=== PATIENT | female | born 1935 | race Caucasian/White ===

== ENCOUNTER 2018-12-27 14:42 | Observation (INO) | payer MEDICARE ==
[2018-12-27 22:26] VITALS: BMI 23.5
[2018-12-28] MEDS ORDERED: Loratadine 10 MG TAB PO PRN (06:42)
[2018-12-28] MEDS ORDERED: hydrALAZINE 20 MG/ML VIAL SLOW IVP PRN (06:42)
[2018-12-28] MEDS ORDERED: Sodium Chloride 0.65% Nasal 44 ML BOT EA NARE PRN (06:42)
[2018-12-28] MEDS ORDERED: Zolpidem Tartrate 5 MG TAB PO PRN (06:42)
[2018-12-28] MEDS ORDERED: Senokot S 8.6-50 MG TAB PO PRN (06:42)
[2018-12-28] MEDS ORDERED: HYDROcodone/Acetaminophen 5/325 mg Tablet PO PRN (06:42)
[2018-12-28] MEDS ORDERED: Ondansetron ODT 4 MG TAB PO PRN (06:42)
[2018-12-28] MEDS ORDERED: Artificial Tears 18 DROP/0.9 ML EA EYE PRN (06:42)
[2018-12-28] MEDS ORDERED: Bisacodyl 10 MG SUPP PR PRN (06:42)
[2018-12-28] MEDS ORDERED: Calcium Carbonate 500 MG ChewTAB PO PRN (06:42)
[2018-12-28] MEDS ORDERED: Eucerin (Mineral Oil/Petrolatum,White) 30 gm Jar TOP PRN (06:42)
[2018-12-28] MEDS ORDERED: Acetaminophen 325 MG TAB PO PRN (06:42)
[2018-12-28] MEDS ORDERED: Cepastat Lozenges 1 LOZ PO PRN (06:42)
[2018-12-28] MEDS ORDERED: Diabetic Tussin 200 MG/10 ML UDCUP PO PRN (06:42)
[2018-12-28] MEDS ORDERED: Loperamide HCl 2 MG CAP PO PRN (06:42)
[2018-12-28] MEDS ORDERED: Ondansetron PF 4 MG/2 ML Vial IVP PRN (06:42)
[2018-12-28] MEDS: Magnesium Oxide 400 MG TAB PO SCH (08:45)
[2018-12-28] MEDS: Metamucil PACK PO SCH (08:45)
[2018-12-28] MEDS: Famotidine 20 MG TAB PO SCH ×3 (08:45→20:10)
[2018-12-28] MEDS ORDERED: Ketorolac Tromethamine 30 MG/ML VIAL IVP PRN (09:13)
--- NOTE | 2018-12-28 09:37 | HP ---
PRIMARY CARE PHYSICIAN: [facility] Call Admission. REASON FOR ADMISSION: Transferred from [facility] after mechanical fall. HISTORY OF PRESENT ILLNESS: An 83-year-old female, who lives at home with her daughter. The patient has previous history of stroke with mild residual weakness. The patient is mostly ambulating with help of equipment. Yesterday, she was in her bathroom and when she turned, she lost her balance and she fell down. Subsequently, she was having pain in her left hip. Because of left hip pain, the patient was having difficulty ambulation. Initially, the patient was refusing to go to the hospital, but subsequently, she decided to go to the hospital because she was having pain. She was evaluated at [facility] with x-ray and CT abdomen and pelvis, which did not show any fracture or dislocation. The patient was having deep aching pain in the groin on the left side, which was getting worse with weightbearing. As the patient was not able to function by herself at home, that is why, the patient was sent to our emergency room and she was admitted overnight in the hospital. This morning, when I saw the patient at that time, she was having pain free when she was resting, but her pain was getting worse with movement. Her intensity of pain is currently about 2/10. She denies any pain, chest pain, palpitation, shortness of breath. She denies any nausea, vomiting, and diarrhea. She denies any UTI symptoms. She denies any flu-like illness. REVIEW OF SYSTEMS: CONSTITUTIONAL: Negative for weight loss or gain, ability to conduct usual activities. SKIN: Negative for rash, itching. EYES: Negative for double vision, pain. ENT/MOUTH: Negative for nose bleeding, neck stiffness, pain, tenderness. CARDIOVASCULAR: Negative for palpitations, dyspnea on exertion, orthopnea. RESPIRATORY: Negative for shortness of breath, wheezing, cough, hemoptysis, fever or night sweats. GASTROINTESTINAL: Negative for poor appetite, abdominal pain, heartburn, nausea , vomiting, constipation, or diarrhea. GENITOURINARY: Negative for urgency, frequency, dysuria, nocturia. MUSCULOSKELETAL: Negative for pain, swelling. NEUROLOGIC/PSYCHIATRIC: Negative for anxiety, depression. ALLERGY/IMMUNOLOGIC: Negative for skin rash, bleeding tendency. Please see my HPI for pertinent positives and negatives. All other review of systems reviewed and negative, except as mentioned in HPI. PAST MEDICAL HISTORY: History of stroke several years ago. PAST PSYCHIATRIC HISTORY: Reviewed and negative. PAST SURGICAL HISTORY: Reviewed and negative. SOCIAL HISTORY: The patient is living at home with her daughter. No history of tobacco, alcohol, or illicit drug abuse. ALLERGIES: NO KNOWN DRUG ALLERGIES. CURRENT HOME MEDICATIONS: 1. Magnesium oxide 400 mg daily. 2. Trazodone 50 mg p.o. at bedtime. 3. Metamucil daily. EMERGENCY ROOM COURSE: The patient was given [place], morphine and Toradol at other emergency room. The patient had all laboratory investigation and radiological investigation in [facility]. FAMILY HISTORY: No history of CAD, CVA or cancer. PHYSICAL EXAMINATION: VITAL SIGNS: On arrival to our emergency room, blood pressure 139/80, pulse 80, respiratory rate 16, temperature 98.2, saturation 94% on room air. Weight 56.7 kg. GENERAL: The patient is currently alert, oriented. No obvious acute distress. HEENT: Head; normocephalic, atraumatic. Eyes; pupils round, reactive to light. Extraocular muscle intact. ENT; oropharynx within normal limits. Moist mucous membranes. No oral lesion. No pharyngeal erythema. No exudate. NECK: Supple. No JVD. No thyromegaly. No carotid bruit. No jugular venous distention. LUNGS: Clear to auscultation without any rhonchi or rales. CARDIAC: S1, S2 regular without any murmur. No gallop. No rub. ABDOMEN: Soft bowel sounds present. Nontender. Nondistended. No organomegaly. No mass. No suprapubic tenderness. BACK EXAMINATION: Unremarkable. No CVA tenderness. EXTREMITIES: Upper extremities, passive movement of all joints are normal. Lower extremity, no edema. Good distal pulsation. The patient does have pain in left hip with external rotation. There is no leg shortening. There is no tenderness in lateral aspect of the hip. Back is within normal limits. NEUROLOGIC: Nonfocal examination. She moves all 4 limbs, plantar bilateral flexor. SKIN: No skin rash. HEMATOLOGICAL SYSTEM: No lymphadenopathy. PSYCHIATRIC: Normal affect. SIGNIFICANT LABORATORY DATA: The patient had blood tests done at [facility] and reviewed. Her CBC, BMP, and LFT is completely normal. Her x -ray including a CT abdomen and pelvis and x-ray pelvis did not show any fracture or dislocation or any abdominal process. ASSESSMENT AND PLAN: IMPRESSION: 1. Left hip pain, etiology uncertain, suspecting osteoarthritis. Some very mild hairline fracture cannot be entirely excluded. We will consult orthopedic physician. We will control her pain with Toradol and [place] p.r.n. basis. Will full start PT/OT after orthopedic evaluation. The patient may need rehab placement. 2. History of cerebrovascular accident with mild residual weakness. The patient will need PT/OT. 3. Deep vein thrombosis prophylaxis, SCD boots. 4. Gastrointestinal prophylaxis, Pepcid 20 mg p.o. b.i.d. CODE STATUS: Spoke with the patient and the patient is DNR. The patient's daughter is surrogate decision maker. DISPOSITION PLAN: Based on clinical course, the patient by herself prefers to go to [facility] versus rehab upon discharge. We will consult returned case inspector and we will start PT/OT as well. Job ID: [id number] [email or web address]
--- NOTE | 2018-12-28 14:39 | CON ---
DATE OF CONSULTATION: 12/28/2018 HISTORY OF PRESENT ILLNESS: This is an 83-year-old female who presents with her son-in-law at the bedside. The patient has history of a stroke effecting left upper and left lower extremity, weakness, she has difficulty, uses a walker to get around. The patient fell and lost her balance yesterday. The patient is currently in the hospital. She states that she desires to , does not desire to have any further treatment. She was seen in the [facility] and had a femur x-ray and CT scan of her left hip. She was brought in, currently consulted by Medicine for hip pain. The patient is resting currently in bed. PAST MEDICAL HISTORY: Includes stroke. PAST SURGICAL HISTORY: Negative. ALLERGIES: NO KNOWN DRUG ALLERGIES. MEDICATIONS: 1. Magnesium. 2. Trazodone. 3. Metamucil. SOCIAL HISTORY: Living at home. Currently, the patient denies alcohol, tobacco, or drug use. PHYSICAL EXAMINATION: VITAL SIGNS: Currently, patient's vital signs are 97.4, 85, 18, 94% on room air, 142/83. GENERAL: Alert and oriented female, resting comfortably in bed. EXTREMITIES: Focused exam of her left lower extremity shows pain with internal and external rotation of her hip. She is able to gently flex her hip, flex and extend her knee, plantar flex and dorsiflex her feet, but she has some spasm and clonus with motion. The patient's sensation is grossly intact distally. She has brisk cap refill. She has no effusion. Stable knee. The patient's radiographs, which were listed on the wrong date, date as well as under the wrong name, Melissa Torres, 1935. CT scan of her pelvis as well as her hip show no obvious fracture of her left femur or femoral neck. There is what appears to be a little chronic degenerative changes in her trochanter, which could be an avulsion fracture. IMPRESSION: Suspected nondisplaced femoral neck fracture versus just left hip pain. ASSESSMENT AND PLAN: The patient does not desire any intervention at this time. She is refusing care. I discussed that further delineation of the fracture would be required using an MRI of her hip, but the patient does not desire surgery and therefore I would not recommend MRI at this time. The patient will be touchdown weightbearing to her left lower extremity. She will use a walker for mobility. She will likely require disposition to a intermediate care. She may consult Orthopedics again, if there is any further treatment plan requirement. I discussed with the family at the bedside with son-in-law and herself that if she displaced the fracture, she would then for sure need a surgery, but she again is declining all care. Job ID: [id number]
[2018-12-28] MEDS: traZODone HCl 50 MG TAB PO SCH (20:10)
[2018-12-28 20:15] LABS: #Basophils 0.1 thou/uL (0.0-0.2); #Eosinphils 0.1 thou/uL (0.0-0.7); #Lymphocytes 1.4 thou/uL (1.20-3.40); #Monocytes 0.7 thou/uL (0.11-0.59); %Basophils 0.7 % (0.0-1.0); %Eosinophils 0.7 % (0.0-10.0); %Lymphocytes 15.1 % (21.0-51.0); %Monocytes 7.2 % (0.0-10.0); %Neutrophils 76.3 % (42.0-75.0); Hemoglobin 14.2 g/dL (12.0-16.0); Mean Corpuscular HGB CONC 33.4 g/dL (32.0-36.0); Mean Corpuscular Hemoglobin 31.3 pg (27.0-31.0); Mean Corpuscular Volume 93.8 fL (78.0-98.0); Mean Platelet Volume 6.8 fL (7.4-10.4); Platelet Count 200 thou/uL (130-400); RBC Distribution Width 12.2 % (11.5-14.5); Red Blood Cell (RBC) Count 4.54 mill/uL (4.20-5.40); White Blood Cell (WBC) Count 9.2 thou/uL (4.8-10.8)
[2018-12-28 20:38] LABS: ALT (SGPT) 24 U/L (8-55); AST (SGOT) 19 U/L (5-34); Albumin 3.9 g/dL (3.4-4.8); Alkaline Phosphatase 82 U/L (40-150); Anion Gap 14 mmol/L (10-20); BUN (Urea Nitrogen) 14 mg/dL (9.8-20.1); Bilirubin, Total 0.7 mg/dL (0.2-1.2); Calc. Creatinine Clearance 53 mL/min (70-130); Calcium 9.6 mg/dL (7.8-10.44); Carbon Dioxide 21 mmol/L (23-31); Chloride 102 mmol/L (98-107); Estimated GFR-MDRD 75; Globulin 3.1 g/dL (2.4-3.5); Glucose 99 mg/dL (83-110); Potassium 3.8 mmol/L (3.5-5.1); Sodium 133 mmol/L (136-145)
[2018-12-29] MEDS: Famotidine 20 MG TAB PO SCH ×3 (08:54→20:34)
[2018-12-29] MEDS: Magnesium Oxide 400 MG TAB PO SCH (08:55)
[2018-12-29] MEDS: Metamucil PACK PO SCH (08:56)
--- NOTE | 2018-12-29 12:20 | PDOC.PN ---
- Subjective Encounter Start Date: 12/29/18 Encounter Start Time: 07:00 Patient seen and examined. No new complaints. No overnight events - Objective Resuscitation Status - Order Detail: 12/28/18 08:59 Resuscitation Status Routine Resuscitation Status: DNAR: NO Resuscitation Discussed with: discussed with pt and confirmed MAR Reviewed: Yes Vital Signs & Weight: Vital Signs (12 hours) Temp Pulse Resp BP Pulse Ox 12/29/18 07:52 97.8 F 91 16 144/82 H 95 12/29/18 04:54 94 L 12/29/18 03:21 98.3 F 93 12 135/85 94 L Weight Weight 128 lb 11.2 oz I&O: 12/28/18 12/29/18 12/30/18 06:59 06:59 06:59 Intake Total 0 580 Balance 0 580 Result Diagrams: 12/28/18 20:09 12/28/18 20:09 Phys Exam - Physical Examination Constitutional: NAD HEENT: PERRLA, moist MMs, sclera anicteric Neck: no JVD, supple Respiratory: no wheezing, no rales, no rhonchi Cardiovascular: RRR, no significant murmur, no rub Gastrointestinal: soft, non-tender, no distention, positive bowel sounds Musculoskeletal: no edema, pulses present Neurological: non-focal, normal sensation Lymphatic: no nodes Psychiatric: normal affect Skin: no rash, normal turgor Dx/Plan (1) Fall Code(s): W19.XXXA - UNSPECIFIED FALL, INITIAL ENCOUNTER Status: Acute (2) Left hip pain Code(s): M25.552 - PAIN IN LEFT HIP Status: Acute - Plan cont current plan of care, PT/OT, director social welfare * medication reviewed as below * symptomatic treatment * await placement. * pain controlled Review of Systems - Review of Systems ENT: negative: Ear Pain, Ear Discharge, Nose Pain, Nose Discharge, Nose Congestion, Mouth Pain, Mouth Swelling, Throat Pain, Throat Swelling, Other Respiratory: negative: Cough, Dry, Shortness of Breath, Hemoptysis, SOB with Excertion, Pleuritic Pain, Sputum, Wheezing Cardiovascular: negative: chest pain, palpitations, orthopnea, paroxysmal nocturnal dyspnea, edema, light headedness, other Gastrointestinal: negative: Nausea, Vomiting, Abdominal Pain, Diarrhea, Constipation, Melena, Hematochezia, Other Genitourinary: negative: Dysuria, Frequency, Incontinence, Hematuria, Retention , Other Musculoskeletal: negative: Neck Pain, Shoulder Pain, Arm Pain, Back Pain, Hand Pain, Leg Pain, Foot Pain, Other - Medications/Allergies Allergies/Adverse Reactions: Allergies Allergy/AdvReac Type Severity Reaction Status Date / Time No Known Allergies Allergy Verified 12/27/18 20:13 Medications: Current Medications Acetaminophen (Tylenol) 650 mg PO Q4H PRN PRN Reason: Headache/Fever/Mild Pain (1-3) Hydrocodone Bitart/Acetaminophen ([place] 5/325) 1 tab PO Q4H PRN PRN Reason: Moderate Pain (4-6) Artificial Tears (Tears Naturale) 2 drop EA EYE PRN PRN PRN Reason: Dry Eyes Bisacodyl (Dulcolax) 10 mg [place] DAILYPRN PRN PRN Reason: Constipation Calcium Carbonate (Tums) 1,000 mg PO Q4H PRN PRN Reason: Heartburn or Indigestion Famotidine (Pepcid) 20 mg PO BID [facility] Last Admin: 12/29/18 08:54 Dose: Not Given Guaifenesin (Robitussin Sf) 200 mg PO Q4H PRN PRN Reason: Cough Hydralazine HCl (Apresoline) 10 mg SLOW IVP Q4H PRN PRN Reason: SBP > 180 and HR < 70 Ketorolac Tromethamine (Toradol) 15 mg IVP Q6H PRN PRN Reason: Pain Stop: 01/02/19 09:14 Loperamide HCl (Imodium) 2 mg PO PRN PRN PRN Reason: Diarrhea/Loose Stools Loratadine (Claritin) 10 mg PO DAILYPRN PRN PRN Reason: Sinus Symptoms Magnesium Oxide (Magnesium Oxide) 400 mg PO DAILY [facility] Last Admin: 12/29/18 08:55 Dose: 400 mg Mineral Oil/White Petrolatum (Eucerin Cream) 0 gm TOP BIDPRN PRN PRN Reason: Dry Skin Ondansetron HCl (Zofran Odt) 4 mg PO Q6H PRN PRN Reason: Nausea/Vomiting Ondansetron HCl (Zofran) 4 mg IVP Q6H PRN PRN Reason: Nausea/Vomiting Psyllium Hydrophilic Mucilloid (Metamucil) 1 pk PO DAILY [facility] Last Admin: 12/29/18 08:56 Dose: 1 pk Senna/Docusate Sodium (Senokot S) 2 tab PO BID PRN PRN Reason: Constipation Sodium Chloride ([place] Nasal [place] 0.65%) 0 ml EA NARE QIDPRN PRN PRN Reason: Nasal Congestion Throat Lozenges (Cepastat Lozenges) 1 neto PO Q2H PRN PRN Reason: Sore Throat Trazodone HCl (Desyrel) 100 mg PO HS [facility] Last Admin: 12/28/18 20:10 Dose: 100 mg Zolpidem Tartrate (Ambien) 5 mg PO HSPRN PRN PRN Reason: Insomnia
[2018-12-29 16:11] LABS: Bilirubin Small (Negative); Blood, Urine Large (Negative); Clarity CLOUDY (Clear); Glucose, Urine (Dipstick) Negative (Negative); Leukocyte Small (Negative); Nitrite Negative (Negative); Protein, Urine (Dipstick) Negative (Neg-Trace); Specific Gravity, Urine 1.019 (1.002-1.036); Urobilinogen 0.2 mg/dL (0.2-1.0); pH, Urine 5.5 (5.0-9.0)
[2018-12-29 16:13] LABS: Bacteria/HPF 1+ HPF (None Seen); Hyaline Casts/LPF 0-3 HYALINE CAST LPF (0-3 Hyaline); Squamous Epithelial None Seen HPF (0-3); WBC/HPF 21-50 HPF (0-3)
[2018-12-29] MEDS: traZODone HCl 50 MG TAB PO SCH (20:36)
[2018-12-30] MEDS ORDERED: Ciprofloxacin 500 MG TAB PO SCH ×2 (07:15→20:00)
[2018-12-30] MEDS ORDERED: Cipro 250 MG TAB PO SCH (07:15)
[2018-12-30] MEDS: Famotidine 20 MG TAB PO SCH (08:38)
[2018-12-30] MEDS: Metamucil PACK PO SCH (09:29)
[2018-12-30] MEDS: Magnesium Oxide 400 MG TAB PO SCH (09:29)
--- NOTE | 2018-12-30 10:36 | PDOC.PN ---
- Subjective Encounter Start Date: 12/30/18 Encounter Start Time: 07:20 Patient seen and examined. No new complaints. No overnight events - Objective Resuscitation Status - Order Detail: 12/28/18 08:59 Resuscitation Status Routine Resuscitation Status: DNAR: NO Resuscitation Discussed with: discussed with pt and confirmed MAR Reviewed: Yes Vital Signs & Weight: Vital Signs (12 hours) Temp Pulse Resp BP Pulse Ox 12/30/18 06:51 97.4 F L 89 16 135/89 93 L 12/30/18 03:39 98.1 F 92 16 132/77 94 L 12/29/18 23:27 97.3 F L 102 H 16 113/74 92 L Weight Weight 128 lb 11.2 oz I&O: 12/29/18 12/30/18 12/31/18 06:59 06:59 06:59 Intake Total 580 240 237 Output Total 12 Balance 580 228 237 Result Diagrams: 12/28/18 20:09 12/28/18 20:09 Phys Exam - Physical Examination Constitutional: NAD HEENT: PERRLA, moist MMs, sclera anicteric Neck: no JVD, supple Respiratory: no wheezing, no rales, no rhonchi Cardiovascular: RRR, no significant murmur, no rub Gastrointestinal: soft, non-tender, no distention, positive bowel sounds Musculoskeletal: no edema, pulses present Neurological: non-focal, normal sensation, moves all 4 limbs Lymphatic: no nodes Psychiatric: normal affect, A&O x 3 Skin: no rash, normal turgor Dx/Plan (1) Fall Code(s): W19.XXXA - UNSPECIFIED FALL, INITIAL ENCOUNTER Status: Acute (2) Left hip pain Code(s): M25.552 - PAIN IN LEFT HIP Status: Acute (3) UTI (urinary tract infection) Status: Acute - Plan cont current plan of care, continue antibiotics, PT/OT, manager social responsibility * add cipro * once we have snu arranged will discharge * medically stable * medication reviewed as below * symptomatic treatment. Review of Systems - Review of Systems ENT: negative: Ear Pain, Ear Discharge, Nose Pain, Nose Discharge, Nose Congestion, Mouth Pain, Mouth Swelling, Throat Pain, Throat Swelling, Other Respiratory: negative: Cough, Dry, Shortness of Breath, Hemoptysis, SOB with Excertion, Pleuritic Pain, Sputum, Wheezing Cardiovascular: negative: chest pain, palpitations, orthopnea, paroxysmal nocturnal dyspnea, edema, light headedness, other Gastrointestinal: negative: Nausea, Vomiting, Abdominal Pain, Diarrhea, Constipation, Melena, Hematochezia, Other Genitourinary: negative: Dysuria, Frequency, Incontinence, Hematuria, Retention , Other Musculoskeletal: negative: Neck Pain, Shoulder Pain, Arm Pain, Back Pain, Hand Pain, Leg Pain, Foot Pain, Other - Medications/Allergies Allergies/Adverse Reactions: Allergies Allergy/AdvReac Type Severity Reaction Status Date / Time No Known Allergies Allergy Verified 12/27/18 20:13 Medications: Current Medications Acetaminophen (Tylenol) 650 mg PO Q4H PRN PRN Reason: Headache/Fever/Mild Pain (1-3) Hydrocodone Bitart/Acetaminophen ([place] 5/325) 1 tab PO Q4H PRN PRN Reason: Moderate Pain (4-6) Artificial Tears (Tears Naturale) 2 drop EA EYE PRN PRN PRN Reason: Dry Eyes Bisacodyl (Dulcolax) 10 mg [place] DAILYPRN PRN PRN Reason: Constipation Calcium Carbonate (Tums) 1,000 mg PO Q4H PRN PRN Reason: Heartburn or Indigestion Ciprofloxacin (Cipro) 500 mg PO 06,1999 [facility] Famotidine (Pepcid) 20 mg PO BID [facility] Last Admin: 12/30/18 08:38 Dose: Not Given Guaifenesin (Robitussin Sf) 200 mg PO Q4H PRN PRN Reason: Cough Hydralazine HCl (Apresoline) 10 mg SLOW IVP Q4H PRN PRN Reason: SBP > 180 and HR < 70 Ketorolac Tromethamine (Toradol) 15 mg IVP Q6H PRN PRN Reason: Pain Stop: 01/02/19 09:14 Loperamide HCl (Imodium) 2 mg PO PRN PRN PRN Reason: Diarrhea/Loose Stools Loratadine (Claritin) 10 mg PO DAILYPRN PRN PRN Reason: Sinus Symptoms Magnesium Oxide (Magnesium Oxide) 400 mg PO DAILY [facility] Last Admin: 12/30/18 09:29 Dose: Not Given Mineral Oil/White Petrolatum (Eucerin Cream) 0 gm TOP BIDPRN PRN PRN Reason: Dry Skin Ondansetron HCl (Zofran Odt) 4 mg PO Q6H PRN PRN Reason: Nausea/Vomiting Ondansetron HCl (Zofran) 4 mg IVP Q6H PRN PRN Reason: Nausea/Vomiting Psyllium Hydrophilic Mucilloid (Metamucil) 1 pk PO DAILY [facility] Last Admin: 12/30/18 09:29 Dose: Not Given Senna/Docusate Sodium (Senokot S) 2 tab PO BID PRN PRN Reason: Constipation Sodium Chloride ([place] Nasal [place] 0.65%) 0 ml EA NARE QIDPRN PRN PRN Reason: Nasal Congestion Throat Lozenges (Cepastat Lozenges) 1 neto PO Q2H PRN PRN Reason: Sore Throat Trazodone HCl (Desyrel) 100 mg PO [facility] Last Admin: 12/29/18 20:36 Dose: 100 mg Zolpidem Tartrate (Ambien) 5 mg PO HSPRN PRN PRN Reason: Insomnia
--- NOTE | 2018-12-30 11:32 | DIS ---
DATE OF ADMISSION: 12/27/2018 DATE OF DISCHARGE: 12/30/2018 PRIMARY CARE PHYSICIAN: Dr. Anselmo Bell. DISCHARGE DISPOSITION: [facility]. PRIMARY DISCHARGE DIAGNOSES: Mechanical fall and subsequent left hip pain, urinary tract infection. SECONDARY DISCHARGE DIAGNOSIS: None. PRIMARY PROCEDURE/OPERATION: None. RADIOLOGICAL INVESTIGATION: None. SIGNIFICANT LABORATORY DATA: Hemoglobin 14.2, creatinine 0.74. LFT normal. Urinalysis suggestive of UTI. Urine culture negative. DISCHARGE MEDICATIONS: 1. Magnesium oxide 400 mg p.o. daily. 2. Metamucil one pack p.o. daily. 3. Trazodone 100 mg p.o. at bedtime. 4. Motrin 400 mg q.6 hourly p.r.n. for pain. 5. Tylenol 650 mg q.4 hourly p.r.n. for pain. 6. Pepcid 20 mg p.o. b.i.d. 7. Ciprofloxacin 500 mg p.o. b.i.d. for 7 days. CONTRAINDICATION: None. CODE STATUS: DNR. INPATIENT INFORMATION MANAGEMENT MANAGER: Dr. Dillon Jimenez. TEST RESULTS PENDING ON DISCHARGE: None. ALLERGIES: NO KNOWN DRUG ALLERGIES. DISCHARGE PLAN: Posthospital, the patient will follow up with primary care physician. The patient will need PT, OT. HOSPITAL COURSE: An 83-year-old female, who had mechanical fall at home. Subsequently, she was having left hip pain. The patient was evaluated at local emergency room and subsequently, she was sent to emergency room. This patient had a pelvis CT scan, x-ray of abdomen, everything was unremarkable. Routine blood test showed urinary tract infection type of finding. The patient did not want to go for more testing and she did not want to go for any further aggressive treatment. Orthopedic evaluated this patient while in hospital. The patient and the patient's family member are interested in placing her to assisted home and that is why with help of correctional case manager, we are trying to arrange assisted home if possible. This patient is under observation status. She does not meet any inpatient criteria at this point, so we will try with help of correctional case manager if he had arranged rehab versus assisted home versus swing bed. Otherwise, this patient is medically stable for discharge at any time. The patient is seen and examined at bedside today. Please see my progress note from today for further detail. Job ID: [id number]
[2018-12-30 12:20] VITALS: BP 117/74; TEMP 98.3
== END 2018-12-30 15:12 ==
LOC: ERS 14:42 → ONC 20:05
PROVIDERS: ADMIT Family Medicine; ATTEND Family Medicine
DX: M25.552 Pain in left hip (principal); N39.0 Urinary tract infection, site not specified; I69.354 Hemiplegia and hemiparesis following cerebral infarction affecting left non-dominant side; Z66 Do not resuscitate; Z79.899 Other long term (current) drug therapy; W19.XXXA Unspecified fall, initial encounter; Y92.002 Bathroom of unspecified non-institutional (private) residence as the place of occurrence of the external cause
CPT/HCPCS: 51701; 80053; 85025; 87086; 97139 ×3; 97530; 99284; G0378 ×3; 36415; 81003; 81015; A4353